=== PATIENT | female | born 1955 | race Two or more races ===

== ENCOUNTER 2021-07-25 18:25 | Inpatient (IN) | payer OTHER ==
[~2021-07-25] VITALS: Ht 157.5 cm; Wt 169.6 kg
[2021-07-25] MEDS ORDERED: LANTUS SOL100 UNIT/1 (18:44)
[2021-07-25] MEDS ORDERED: GLIMEPIRIDE2 MG (18:44)
--- NOTE | 2021-07-25 18:49 | NUR ---
SE RECIBEP TE ALERTA Y ORIENTADA X3 LA CUAL REFIERE VENIR POR DOLOR EN PIE LT. SE OBSERVA PIE INFLAMADO, CALIENTE Y ROJIZO. PTE REFIERE SER DIABETICA Y HABERSE PINCHADO CON ALGO EL FIN DE SEMANA. SE MIDEN S/V A PTE Y SE COLOCA EN JENAE.
--- NOTE | 2021-07-25 20:31 | NUR ---
SE ORIENTA AL PACIENTE SOBRE EL TX. SE EXTRAEN MUESTRAS DE MITCHELL BAJO MEDIDAS ASEPTICAS SE ROTULAN Y ENVIAN AL LABORATORIO. SE CANALIZA Y ADMINISTRAN MEDICAMENTOS MARY GRACE ORDEN MEDICA.
== END 2021-08-08 17:49 | DRG 603 ==
LOC: ER 18:25 → MEDI 07-26 10:26
PROVIDERS: ADMIT Internal Medicine; ATTEND Internal Medicine
PROC: 0H9 Skin and Breast, Drainage (ICD-10-PCS; principal; 2021-07-26)
PROC: 02HV33Z Insertion of Infusion Device into Superior Vena Cava, Percutaneous Approach (ICD-10-PCS; 2021-07-29)
PROC: B44HZZZ Ultrasonography of Bilateral Lower Extremity Arteries (ICD-10-PCS; 2021-08-01)
PROC: B43GZZZ Magnetic Resonance Imaging (MRI) of Left Lower Extremity Arteries (ICD-10-PCS; 2021-08-01)
DX: L02.612 Cutaneous abscess of left foot (principal); L03.116 Cellulitis of left lower limb; B96.89 Other specified bacterial agents as the cause of diseases classified elsewhere; I10 Essential (primary) hypertension; E11.40 Type 2 diabetes mellitus with diabetic neuropathy, unspecified; Z20.822 Contact with and (suspected) exposure to COVID-19; Z79.4 Long term (current) use of insulin
CPT/HCPCS: 73725

== ENCOUNTER 2024-06-03 13:37 | Outpatient (CLI) | payer OTHER ==
[~2024-06-03 13:37] MED LIST: BUSPIRONE HCL15 MG; GLIMEPIRIDE2 MG; HYOSCYAMINE0.125 M1 SL; JENTADUETO 2.51 EACH; LANTUS SOL100 UNIT/1; LOSARTAN POTASS25 MG; PEPCID AC20 MG PO; TRAM1TAB98 PO
== END 2024-06-03 13:48 | disposition home or self-care (01) ==
LOC: MAMO-SONO 13:37
PROVIDERS: ATTEND Internal Medicine Hematology & Oncology
DX: C19 Malignant neoplasm of rectosigmoid junction (principal); I10 Essential (primary) hypertension; E11.9 Type 2 diabetes mellitus without complications; E78.2 Mixed hyperlipidemia; I70.213 Atherosclerosis of native arteries of extremities with intermittent claudication, bilateral legs; N39.0 Urinary tract infection, site not specified